=== PATIENT | female | born 1945 | race African-American/Black ===

== ENCOUNTER 2016-06-15 09:02 | Emergency (ER) | payer OTHER, MEDICAID ==
[2016-06-15 09:06] VITALS: BMI 40.9
--- NOTE | 2016-06-15 09:24 | DR.GENAD ---
HPI - PCP Primary Care Physician: LAVONNE PAYNE - HPI Comment HPI Comment: WOKE UP TODAY DIZZ, NAUSEATED, ATAXIC AND WEAK ON THE RIGHT SIDE. BP AND GLUCOSE WERE NOT LOW OR ELEVATED. GETTING WORSE. NO FEVER. NO URI OR SINUS SYMTOMS. NO PREVIOUS EPISODES. - Complaint/Symptoms Chief Complaint Doctors Comments: ATAXIA, DIZZINESS ZNE RIGHT SIDED WEAKNESS SINCE THIS AM. Chief Complaint:: Patient stated that she feels dizzy and weak. She stated that she can't stand up without being very dizzy. - Nurses notes reviewed Nurses Notes Review: Yes - Source History Provided: Patient - Mode of Arrival Mode of Arrival: Wheelchair - Timing Onset of Chief Complaint: 06/15/16 Came on: Suddenly - Duration Duration: Constant Duration: Hours PMH - PMH Past Medical History: Yes Past Medical History: Diabetes, Hypertension Past Surgical History: Yes Surgical History: Cholecystectomy, Hysterectomy - Family History History of Family Medical Conditions: Yes Family Medical History: Diabetes Mellitus, Cancer, Hypertension - Social History Does patient currently use any type of tobacco product: No Have you used tobacco products in the last 12 months: No Type of Tobacco Use: None Does any household member use tobacco: No Alcohol Use: None Do you use any recreational Drugs:: No Lives With: Family Lives Where: Home - infectious screening In the last 2 months have you had wt loss of >10#?: NO Have you had fever, night sweats or hemotysis?: No Have you traveled outside the country in the last 6 months?: No Isolation: Standard ROS - Review of Systems Constitutional: Weakness, Fatigue. negative: Chills, Fever Eyes: No Symptoms Reported. negative: Eye Pain, Blurred Vision, Discharge, Photophobia, Diplopia ENTM: No Symptoms Reported. negative: Ear Pain, Nose Discharge, Nose Congestion , Throat Pain Respiratoy: Non-Productive Cough. negative: Productive Cough, Short of Breath, Wheezing, Hemoptysis Cardiovascular: Syncope (NEAR SYNCOPE). negative: Palpitations Gastrointestinal/Abdominal: Nausea. negative: Abdominal Pain, Diarrhea, Vomiting Genitourinary: No Symptoms Reported. negative: Dysuria, Frequency, Hematuria Neurological: Headache (RIGHT SIDED HEADACHE), Weakness, Dizziness, Other ( ATAXIA) Musculoskeletal: Muscle Pain Integumentary: No Symptoms Reported Hematologic/Lymphatic: No Symptoms Reported Endocrine: No Symptoms Reported All Other Systems: Reviewed and Negative PE - Vital Signs Vitals: Temperature 97.9 F Pulse Rate 79 Respiratory Rate 20 Blood Pressure 137/70 O2 Sat by Pulse Oximetry 99 - General Limitations: No Limitations General Appearance: Alert - Head Head Exam: Normal Inspection - Eyes Eye exam: Normal Appearance - ENT ENT Exam: Normal External Ear Exam External Ear Exam: Normal External Inspection TM/Canal Exam: Bilateral Normal Nose Exam: Normal Nose Exam Mouth Exam: Normal Inspection Throat Exam: Normal Inspection - Neck Neck Exam: Normal Inspection - Chest Chest Inspection: Symmetric Chest Wall Rise - Respiratory Respiratory Exam: Normal Lung Sounds Bilat Respiratory Exam: Bilateral Clear to Auscultation - Cardiovascular Cardiovascular Exam: Regular Rate, Normal Rhythm, Normal Heart Sounds - Abdominal Exam Abdominal Exam: Normal Bowel Sounds, Soft. negative: Tenderness - Extremities Extremities Exam: Normal Inspection - Back Back Exam: Normal Inspection - Neurologic Neurological Exam: Alert, Oriented X3, CN II-XII Intact, Reflexes Normal. negative: Normal Gait (ATAXIA), Motor Sensory Deficit - Psychiatric Psychiatric Exam: Anxious - Skin Skin Exam: Normal Color MDM - Additional Information Additional Information Obtained From: Family - Differential Diagnosis Differential Diagnosis: ATAXIA, DIZZINESS. CVA, TIA, VERTIGO Course - Treatment Treatment: SEE ORDERS - Consultation Consultation Comments: DISCUSS PATIENT WITH DR. MICHELLE. HE WILL ADMIT PATIENT. - Education/Counseling Education/Counseling: Patient, Family, Education Educated On: Diagnosis, Needs for Follow Up ROR - Labs Reviewed Laboratory Results Reviewed?: Yes Result Diagrams: 06/16/16 03:25 06/16/16 03:25 Laboratory: WBC 7.5 X10^3/uL (3.6-10.0) 06/15/16 10:04 RBC 4.87 X10^6/uL (3.5-5.4) 06/15/16 10:04 Hgb 13.7 g/dL (12.0-16.0) 06/15/16 10:04 Hct 41.0 % (36.0-47.0) 06/15/16 10:04 MCV 84.3 fL (80.0-100.0) 06/15/16 10:04 MCH 28.2 pg (27.0-34.0) 06/15/16 10:04 MCHC 33.5 g/dL (33.0-35.0) 06/15/16 10:04 RDW 13.6 % (11.6-16.5) 06/15/16 10:04 Plt Count 232 X10^3/uL (150.0-450.0) 06/15/16 10:04 MPV 8.6 fL (7.4-11.0) 06/15/16 10:04 Neut % 55.1 % (42.0-75.0) 06/15/16 10:04 Lymph % 34.8 % (21.0-51.0) 06/15/16 10:04 [place] % 6.5 % (0.0-13.0) 06/15/16 10:04 Eos % 2.6 % (0.9-2.9) 06/15/16 10:04 Baso % 1.0 % (0.2-1.0) 06/15/16 10:04 Neut # 4.1 x10^3/uL (2.2-4.8) 06/15/16 10:04 Lymph # 2.6 X10^3/uL (1.3-2.9) 06/15/16 10:04 [place] # 0.5 x10^3/uL (0.3-0.8) 06/15/16 10:04 Eos # 0.2 x10^3/uL (0.0-0.2) 06/15/16 10:04 Baso # 0.1 X10^3/uL (0.0-0.1) 06/15/16 10:04 Absolute Nucleated RBC 0.1 /100WBC 06/15/16 10:04 Sodium 140 mmol/L (136-145) 06/15/16 10:04 Corrected Sodium 141 mmol/L (136-145) 06/15/16 10:04 Potassium 3.2 mmol/L (3.5-5.1) L 06/15/16 10:04 Chloride 102 mmol/L (98-107) 06/15/16 10:04 Carbon Dioxide 27.9 mmol/L (21-32) 06/15/16 10:04 BUN 15 mg/dL (7-18) 06/15/16 10:04 Creatinine 0.77 mg/dL (0.55-1.02) 06/15/16 10:04 Est GFR (MDRD) Af Amer > 60 (>60) 06/15/16 10:04 Est GFR (MDRD) Non-Af > 60 (>60) 06/15/16 10:04 Glucose 129 mg/dL (65-99) H 06/15/16 10:04 Calcium 9.0 mg/dL (8.5-10.1) 06/15/16 10:04 Corrected Calcium TNP 06/15/16 10:04 Total Bilirubin 0.60 mg/dL (0.2-1.0) 06/15/16 10:04 AST 26 Units/L (15-37) 06/15/16 10:04 ALT 33 Units/L (12-78) 06/15/16 10:04 Alkaline Phosphatase 86 Units/L (46-116) 06/15/16 10:04 Creatine Kinase 127 Units/L (26-192) 06/15/16 10:04 CK-MB (CK-2) < 1.0 ng/mL (0-4.0) 06/15/16 10:04 CK/CKMB % Calc 0.8 % (<4) 06/15/16 10:04 Troponin I < 0.02 ng/mL (0-1.5) 06/15/16 10:04 Total Protein 7.9 g/dL (6.4-8.2) 06/15/16 10:04 Albumin 3.4 g/dL (3.4-5.0) 06/15/16 10:04 Globulin 4.5 g/dL (2.5-4.5) 06/15/16 10:04 Albumin/Globulin Ratio 0.8 Ratio (1.1-2.1) L 06/15/16 10:04 - XRAY XRAY Interpreted by: Radiologist XRAY Findings: REPORT DISCUSS WITH PATIENT. - EKG Rhythm: NSR (EKG NOTED) - Diagnosis Discharge Problem: Ataxia, Dizziness, Right sided weakness Headache Qualifiers: Headache type: unspecified Headache chronicity pattern: acute headache Intractability: intractable Qualified Code(s): R51 - Headache - Discharge Plan Disposition: ADMITTED INPATIENT Condition: Stable - Follow ups/Referrals - Instructions
[2016-06-15 10:25] LABS: BASOPHILS # (AUTO) 0.1 X10^3/uL (0.0-0.1); EOSINOPHILS # (AUTO) 0.2 x10^3/uL (0.0-0.2); EOSINOPHILS % (AUTO) 2.6 % (0.9-2.9); HEMOGLOBIN 13.7 g/dL (12.0-16.0); LYMPHOCYTES # (AUTO) 2.6 X10^3/uL (1.3-2.9); LYMPHOCYTES % (AUTO) 34.8 % (21.0-51.0); MEAN CORPUSCULAR HEMOGLOBIN 28.2 pg (27.0-34.0); MEAN CORPUSCULAR HGB CONC 33.5 g/dL (33.0-35.0); MEAN CORPUSCULAR VOLUME 84.3 fL (80.0-100.0); MEAN PLATELET VOLUME 8.6 fL (7.4-11.0); MONOCYTES # (AUTO) 0.5 x10^3/uL (0.3-0.8); MONOCYTES % (AUTO) 6.5 % (0.0-13.0); NEUTROPHILS # (AUTO) 4.1 x10^3/uL (2.2-4.8); NEUTROPHILS % (AUTO) 55.1 % (42.0-75.0); PLATELET COUNT 232 X10^3/uL (150.0-450.0); RED BLOOD COUNT 4.87 X10^6/uL (3.5-5.4); RED CELL DISTRIBUTION WIDTH 13.6 % (11.6-16.5); WHITE BLOOD COUNT 7.5 X10^3/uL (3.6-10.0)
[2016-06-15 10:38] LABS: BLOOD UREA NITROGEN 15 mg/dL (7-18); CARBON DIOXIDE 27.9 mmol/L (21-32); CHLORIDE 102 mmol/L (98-107); COR NA(FOR HYPERGLY) 141 mmol/L (136-145); CREATININE 0.77 mg/dL (0.55-1.02); GLUCOSE 129 mg/dL (65-99); SODIUM 140 mmol/L (136-145); TROPONIN I < 0.02 ng/mL (0-1.5); eGFR BLACK RACES > 60 (>60); eGFR NON BLACK RACES > 60 (>60)
[2016-06-15] MEDS ORDERED: POTASSIUM CHLORIDE LIQ 20 MEQ UDC PO ONE (10:43)
[2016-06-15 10:44] LABS: ALANINE AMINOTRANSFERASE 33 Units/L (12-78); ALBUMIN 3.4 g/dL (3.4-5.0); ALKALINE PHOSPHATASE 86 Units/L (46-116); ASPARTATE AMINO TRANSFERASE 26 Units/L (15-37); CKMB % 0.8 % (<4); CREATINE KINASE 127 Units/L (26-192); CREATINE KINASE MB < 1.0 ng/mL (0-4.0); TOTAL PROTEIN 7.9 g/dL (6.4-8.2)
[2016-06-15] MEDS ORDERED: POTASSIUM CHLORIDE LIQ 20 MEQ UDC ONE (10:50)
--- NOTE | 2016-06-15 11:30 | CT ---
HISTORY: Headache, dizziness Study: CT brain without contrast Comparison: None Technique: Multiple axial images of the brain were obtained from the skull base to the vertex without administr ation of IV contrast. Coronal and sagittal reformats were performed. Dose reduction procedures were used with MA/kv adjusted for body size. Findings: No acute intraparenchymal hemorrhage or mass can be identified. No extra-axial fluid collections ar e seen. No alteration in the attenuation of the brain parenchyma can be identified to suggest acute or subacute ischemic change. The ventricular system is symmetric and nondilated. The extracranial structures are grossly unremarkable. IMPRESSION: No significant intracranial abnormality identified Reported By:
--- NOTE | 2016-06-15 12:04 | RAD ---
HISTORY: Cough, dizziness Study: Chest one view Comparison: None Findings: The trachea is midline. The cardiac silhouette is enlarged. No congestive heart failure is noted. T he aorta is calcified.. The lungs are clear without focal infiltrate or effusion. The bony thorax is unremarkable. IMPRESSION: 1. Cardiomegaly without congestive heart failure 2. Lungs clear Reported By:
[2016-06-15 14:15] LABS: BILIRUBIN,URINE NEGATIVE (NEGATIVE); BLOOD/HEMOGLOBIN,URINE 1+ (NEGATIVE); GLUCOSE, URINE NEGATIVE (NEGATIVE); KETONES,URINE NEGATIVE (NEGATIVE); LEUKOCYTE ESTERASE ,URINE NEGATIVE (NEGATIVE); NITRITES,URINE NEGATIVE (NEGATIVE); PH,URINE 6.5 (5.0 - 8.0); PROTEIN,URINE NEGATIVE (NEGATIVE); UROBILINOGEN,URINE NORMAL (NORMAL)
[2016-06-15 14:23] LABS: APPEARANCE,URINE CLEAR (CLEAR); BACTERIA,URINE TRACE /HPF (NEGATIVE); COLOR,URINE YELLOW (YELLOW); RBC,URINE 0-2 /HPF (NEGATIVE); SQUAMOUS EPITHELIAL CELL,UR NEGATIVE /HPF (NEGATIVE)
[2016-06-15 17:01] LABS: CKMB % 0.7 % (<4); CREATINE KINASE 135 Units/L (26-192); CREATINE KINASE MB < 1.0 ng/mL (0-4.0); TROPONIN I < 0.02 ng/mL (0-1.5)
[2016-06-15] MEDS: FIORICET TAB PO PRN (20:07)
[2016-06-15] MEDS ORDERED: K-RIDER 10 MEQ/NS 100 ML 10 MEQ/100 ML BAG IV PRN (20:22)
[2016-06-15] MEDS ORDERED: K-DUR TAB 20 MEQ PO PRN (20:22)
[2016-06-15] MEDS ORDERED: K-LYTE EFFERVESCENT PO PRN (20:22)
[2016-06-15] MEDS ORDERED: POTASSIUM CHLORIDE LIQ 20 MEQ UDC PO PRN (20:22)
[2016-06-15 23:11] LABS: CREATINE KINASE 116 Units/L (26-192); CREATINE KINASE MB 1.2 ng/mL (0-4.0); TROPONIN I < 0.02 ng/mL (0-1.5)
[2016-06-16 05:24] LABS: BASOPHILS # (AUTO) 0.1 X10^3/uL (0.0-0.1); BASOPHILS % (AUTO) 0.7 % (0.2-1.0); EOSINOPHILS # (AUTO) 0.3 x10^3/uL (0.0-0.2); EOSINOPHILS % (AUTO) 4.1 % (0.9-2.9); HEMATOCRIT 40.9 % (36.0-47.0); HEMOGLOBIN 13.6 g/dL (12.0-16.0); LYMPHOCYTES # (AUTO) 3.8 X10^3/uL (1.3-2.9); LYMPHOCYTES % (AUTO) 45.5 % (21.0-51.0); MEAN CORPUSCULAR HEMOGLOBIN 28.2 pg (27.0-34.0); MEAN CORPUSCULAR HGB CONC 33.3 g/dL (33.0-35.0); MEAN CORPUSCULAR VOLUME 84.7 fL (80.0-100.0); MEAN PLATELET VOLUME 9.2 fL (7.4-11.0); MONOCYTES # (AUTO) 0.6 x10^3/uL (0.3-0.8); MONOCYTES % (AUTO) 7.7 % (0.0-13.0); NEUTROPHILS # (AUTO) 3.5 x10^3/uL (2.2-4.8); PLATELET COUNT 235 X10^3/uL (150.0-450.0); RED BLOOD COUNT 4.83 X10^6/uL (3.5-5.4); RED CELL DISTRIBUTION WIDTH 13.8 % (11.6-16.5); WHITE BLOOD COUNT 8.3 X10^3/uL (3.6-10.0)
[2016-06-16 05:42] LABS: ALANINE AMINOTRANSFERASE 36 Units/L (12-78); ALBUMIN 3.1 g/dL (3.4-5.0); ALKALINE PHOSPHATASE 80 Units/L (46-116); ASPARTATE AMINO TRANSFERASE 25 Units/L (15-37); BLOOD UREA NITROGEN 11 mg/dL (7-18); CALCIUM 8.7 mg/dL (8.5-10.1); CARBON DIOXIDE 26.2 mmol/L (21-32); CHLORIDE 106 mmol/L (98-107); COR CA(FOR HYPOALB) 9.4 mg/dL (8.5-10.1); CREATININE 0.71 mg/dL (0.55-1.02); GLUCOSE 109 mg/dL (65-99); SODIUM 143 mmol/L (136-145); TOTAL PROTEIN 7.4 g/dL (6.4-8.2); eGFR BLACK RACES > 60 (>60); eGFR NON BLACK RACES > 60 (>60)
[2016-06-16] MEDS ORDERED: GLUCOPHAGE ONE (08:16)
[2016-06-16] MEDS: NORVASC TAB 10 MG PO SCH (08:45)
[2016-06-16] MEDS: GLUCOPHAGE PO SCH (08:45)
[2016-06-16] MEDS: HYDROCHLOROTHIAZIDE 25 MG TAB PO SCH (08:45)
[2016-06-16] MEDS: FIORICET TAB PO PRN (08:46)
--- NOTE | 2016-06-16 11:26 | MRI ---
HISTORY: Ataxia, dizziness, left-sided weakness Study: MRI Brain with and without contrast Comparison: CT head 06/15/2016 Technique: Multiplanar multi-sequence MRI of the brain was obtained utilizing standard departmental protocol. Sagittal and axial T1 weighted images were obtained. Axial T2 and flair weighted images were performed as well. Axial diffusion weighted and ADC trace mapping was performed. Findings: The brain parenchyma demonstrates no abnormal signal characteristics to suggest intraparenchymal mas s or hemorrhage. Diffusion weighted imaging does not demonstrate abnormal signal characteristics to suggest acute ischemic change.No extra-axial fluid collections are observed. The ventricular system appears symmetric and nondilated. The cerebellopontine angles are normal in appearance without brai nstem mass or evidence for acoustic neuroma. There is no abnormal enhancement. The flow voids on T2 weighted imaging appear unremarkable. The midline structures appear unremarkab le. The soft tissues are unremarkable. The visualized paranasal sinuses and mastoid air cells are c lear. IMPRESSION: 1. Normal MRI of the brain with and without contrast. Reported By:
--- NOTE | 2016-06-16 14:52 | DR.H&P ---
H&P - History & Physical for Day of: H&P Date: 06/15/16 - Chief Complaint Chief Complaint: RIGHT-SIDED WEAKNESS, DIZZINESS - Allergies Allergies/Adverse Reactions: Allergies Allergy/AdvReac Type Severity Reaction Status Date / Time No Known Drug Allergy Allergy Verified 06/22/13 03:41 - History of Present Illness History of Present Illness: THIS IS A 70 YEAR OLD FEMALE, WHO IS A PATIENT OF DR. UZMA PAYNE. SHE PRESENT TO THE EMERGENCY ROOM WITH COMPLAINTS OF DIZZINESS, NAUSEA, AND WEAKNESS ON RIGHT SIDE. SHE REPORTS ONSET OF SYMPTOMS WAS EARLIER THIS MORNING. SHE DENIES PREVIOUS EPISODES. SHE ALSO DENIES FEVER , COUGH, OR SINUS SYMPTOMS. SHE IS NOTED WITH ATAXIA. PATIENT ALSO REPORTS A SEVERE HEADACHE. LABS AND CT OBTAINED IN ER. CBC WNL. CMP WNL EXCEPT: POTASSIUM 3.2, GLUCOSE 129. CARDIAC ENZYMES WNL. EKG: SINUS RHYTHM, RATE 66. CT BRAIN REPORTS NO SIGNIFICANT INTRACRANIAL ABNORMALITY. CHEST XRAY NORMAL. WE WILL ADMIT PATIENT TO HOSPITAL FOR FURTHER TREATMENT AND EVALUATION OF RIGHT- SIDED WEAKNESS AND DIZZINESS. WE WILL FOLLOW UP IN AM WITH LABS AND MRI OF BRAIN. - Past Medical History Past Medical History: Arthritis, Diabetes, Hypertension Additional Medical History: Back Pain - Past Surgical History Surgical History: Cholecystectomy, Hysterectomy - Family History Family Medical History: Diabetes Mellitus, Cancer, Hypertension Family History Comment: Mother- CHF - Social History Does patient currently use any type of tobacco product: No Have you used tobacco products in the last 12 months: No Type of Tobacco Use: None Does any household member use tobacco: No Alcohol Use: None Drug Use: None - Medications Home Medications: Hydrochlorothiazide [HYDROCHLOROTHIAZIDE 25 MG TAB *] 1 tab PO DAILY 06/15/16 [ History Confirmed 06/15/16] RX: Amlodipine Besylate [NORVASC 10 MG *] 1 tab PO DAILY 06/15/16 [History Confirmed 06/15/16] RX: Metformin HCl [GLUCOPHAGE 500 MG *] 1 tab PO DAILY 06/15/16 [History Confirmed 06/15/16] - Review of Systems Constitutional: Weakness, Malaise Eyes: No Symptoms Reported. denies: Pain, Vision Change, Conjunctivae Inflammation, Eyelid Inflammation, Redness ENT: No Symptoms Reported. denies: Ear Pain, Ear Discharge, Nose Pain, Nose Discharge, Nose Congestion, Mouth Pain, Mouth Swelling, Throat Pain, Throat Swelling Respiratory: No Symptoms Reported. denies: Cough, Shortness of Breath, Hemoptysis, SOB with Excertion, Pleuritic Pain, Sputum, Wheezing Cardiovascular: Light Headedness. denies: Chest Pain, Palpitations, Orthopnea, Paroxysmal Noc. Dyspnea, Edema Gastrointestinal: No Symptoms Reported. denies: Nausea, Vomiting, Abdominal Pain, Diarrhea, Constipation, Melena, Hematochezia Genitourinary: No Symptoms Reported. denies: Dysuria, Frequency, Incontinence, Hematuria, Retention Musculoskeletal: No Symptoms Reported. denies: Shoulder Pain, Arm Pain, Back Pain, Hand Pain, Leg Pain, Foot Pain, Neck Pain Skin: No Symptoms Reported. denies: Lesions, Jaundice, Bruising, Wound, Ecchymosis Neurological: Weakness (Right-sided), Other (Ataxia, Dizziness) - Physical Exam Vital Signs: Temperature 97.6 F Pulse Rate [Right Brachial] 63 Respiratory Rate 20 Blood Pressure [Right Arm] 117/65 O2 Sat by Pulse Oximetry 20 Oriented: Normal, Time, Person, Place Eyes: Normal. negative: Blurred Vision, Diplopia, Discharge, Pain, Redness, Photophobia Ear: Normal. negative: Swelling, Ecchymosis, Hemotypanum, Abrasion, Laceration Nose: Normal. negative: Injected, Discharge, Blood Throat: Normal. negative: Tonsillar Hypertrophy, Red, Exudate Respiratory: Clear Throughout Cardiovascular: Normal. negative: Murmur, Edema : Normal. negative: Dysuria, Hematuria, Frequency, Discharge, Bleeding, Auscultation: Bowel Sounds: Normal. negative: Bruit Palpation: Normal. negative: Spleen Enlarged, Liver Enlarged, Mass Pulsatile Tenderness: Normal. negative: Rebound, Guarding, Rigidity Skin: Normal. negative: Diaphoresis, Wound, Bruising, Ecchymosis Musculoskeletal: Instability (Right-sided weakness) Psychiatric: Normal Mood Description: Calm, Appropriate Affect: Normal Speech Pattern: Clear, Appropriate - Assessment/Plan (1) Right sided weakness Status: Acute Plan: ADMIT PATIENT, START NEURO CHECKS Q2H, MRI OF BRAIN IN AM, MONITOR. (2) Ataxia Status: Acute Plan: ABOVE. (3) Dizziness Status: Acute Plan: ABOVE. (4) Headache Qualifiers: Headache type: unspecified Headache chronicity pattern: acute headache Intractability: intractable Qualified Code(s): R51 - Headache Status: Acute Plan: START FIORICET NEEDED, MONITOR. 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
--- NOTE | 2016-06-16 15:10 | PCM.PROG ---
Progress Note - Progress Note for Day of Date: 06/16/16 - Subjective Subjective: PATIENT REPORTS SHE CONTINUES WITH RIGHT-SIDED WEAKNESS, HEADACHE, AND DIZZINESS. PATIENT CONTINUES WITH UNSTEADY GAIT AND REQUIRES ASSISTANCE. SPEECH IS CLEAR. COGNITION IS INTACT, CLEAR, APPROPRIATE. CBC WNL. CMP WNL EXCEPT: GLUCOSE 109, ALBUMIN 3.1. CARDIAC ENZYMES WNL. EKG: SINUS RHYTHM, RATE 70. AN MRI OF BRAIN IS SCHEDULED FOR TODAY. WE WILL ALSO OBTAIN AN ECHO, CAROTID DOPPLER, AND FASTING LIPID PANEL. WE WILL CONTINUE TO MONITOR AND FOLLOW UP IN AM WITH LABS. - Past Medical Family Social History Past Med/Fam/Surg Hx: No changes since H&P Allergies: Allergies No Known Drug Allergy Allergy (Verified 06/22/13 03:41) - Review of Systems ROS: No change since H&P - Vital Signs and I&O's Vital Signs: Temperature 97.6 F Pulse Rate [Right Brachial] 63 Respiratory Rate 20 Blood Pressure [Right Arm] 117/65 O2 Sat by Pulse Oximetry 20 Intake and Output: Intake & Output 06/14/16 06/15/16 06/16/16 06/17/16 11:59 11:59 11:59 11:59 Intake Total 720 780 Balance 720 780 - Physical Exam Oriented: Normal, Time, Person, Place Eyes: Normal. negative: Blurred Vision, Diplopia, Discharge, Pain, Redness, Photophobia Ear: Normal. negative: Swelling, Ecchymosis, Hemotypanum, Abrasion, Laceration Nose: Normal. negative: Injected, Discharge, Blood Throat: Normal. negative: Tonsillar Hypertrophy, Red, Exudate Respiratory: Normal Cardiovascular: Normal. negative: Murmur, Edema : Normal. negative: Dysuria, Hematuria, Frequency, Discharge, Bleeding, Auscultation: Bowel Sounds: Normal. negative: Bruit Palpation: Normal. negative: Spleen Enlarged, Liver Enlarged, Mass Pulsatile Tenderness: Normal. negative: Rebound, Guarding, Rigidity Skin: Normal. negative: Diaphoresis, Wound, Bruising, Ecchymosis Musculoskeletal: Instability (Right-sided weakness) Psychiatric: Normal Mood Description: Calm, Appropriate Affect: Normal Speech Pattern: Clear, Appropriate - Laboratory and Diagnostics Result Diagrams: 06/16/16 03:25 06/16/16 03:25 Labs: Laboratory WBC 8.3 X10^3/uL (3.6-10.0) 03/30/17 03:25 RBC 4.83 X10^6/uL (3.5-5.4) 06/16/16 03:25 Hgb 13.6 g/dL (12.0-16.0) 06/16/16 03:25 Hct 40.9 % (36.0-47.0) 06/16/16 03:25 MCV 84.7 fL (80.0-100.0) 06/16/16 03:25 MCH 28.2 pg (27.0-34.0) 06/16/16 03:25 MCHC 33.3 g/dL (33.0-35.0) 06/16/16 03:25 RDW 13.8 % (11.6-16.5) 06/16/16 03:25 Plt Count 235 X10^3/uL (150.0-450.0) 06/16/16 03:25 MPV 9.2 fL (7.4-11.0) 06/16/16 03:25 Neut % 42.0 % (42.0-75.0) 06/16/16 03:25 Lymph % 45.5 % (21.0-51.0) 06/16/16 03:25 [place] % 7.7 % (0.0-13.0) 06/16/16 03:25 Eos % 4.1 % (0.9-2.9) H 06/16/16 03:25 Baso % 0.7 % (0.2-1.0) 06/16/16 03:25 Neut # 3.5 x10^3/uL (2.2-4.8) 06/16/16 03:25 Lymph # 3.8 X10^3/uL (1.3-2.9) H 06/16/16 03:25 [place] # 0.6 x10^3/uL (0.3-0.8) 06/16/16 03:25 Eos # 0.3 x10^3/uL (0.0-0.2) H 06/16/16 03:25 Baso # 0.1 X10^3/uL (0.0-0.1) 06/16/16 03:25 Absolute Nucleated RBC 0.0 /100WBC 06/16/16 03:25 Sodium 143 mmol/L (136-145) 06/16/16 03:25 Corrected Sodium TNP 06/16/16 03:25 Potassium 4.0 mmol/L (3.5-5.1) 06/16/16 03:25 Chloride 106 mmol/L (98-107) 06/16/16 03:25 Carbon Dioxide 26.2 mmol/L (21-32) 06/16/16 03:25 BUN 11 mg/dL (7-18) 06/16/16 03:25 Creatinine 0.71 mg/dL (0.55-1.02) 06/16/16 03:25 Est GFR (MDRD) Af Amer > 60 (>60) 06/16/16 03:25 Est GFR (MDRD) Non-Af > 60 (>60) 06/16/16 03:25 Glucose 109 mg/dL (65-99) H 06/16/16 03:25 Calcium 8.7 mg/dL (8.5-10.1) 06/16/16 03:25 Corrected Calcium 9.4 mg/dL (8.5-10.1) 06/16/16 03:25 Total Bilirubin 0.40 mg/dL (0.2-1.0) 06/16/16 03:25 AST 25 Units/L (15-37) 06/16/16 03:25 ALT 36 Units/L (12-78) 06/16/16 03:25 Alkaline Phosphatase 80 Units/L (46-116) 06/16/16 03:25 Creatine Kinase 116 Units/L (26-192) 06/15/16 22:35 CK-MB (CK-2) 1.2 ng/mL (0-4.0) 06/15/16 22:35 CK/CKMB % Calc 1.0 % (<4) 06/15/16 22:35 Troponin I < 0.02 ng/mL (0-1.5) 06/15/16 22:35 Total Protein 7.4 g/dL (6.4-8.2) 06/16/16 03:25 Albumin 3.1 g/dL (3.4-5.0) L 06/16/16 03:25 Globulin 4.3 g/dL (2.5-4.5) 06/16/16 03:25 Albumin/Globulin Ratio 0.7 Ratio (1.1-2.1) L 06/16/16 03:25 Specimen Type Clean catch urine 06/15/16 14:00 Urine Color Yellow (YELLOW) 06/15/16 14:00 Urine Appearance Clear (CLEAR) 06/15/16 14:00 Urine pH 6.5 (5.0 - 8.0) 06/15/16 14:00 Ur Specific [place] 1.010 (1.000-1.030) 06/15/16 14:00 Urine Protein Negative (NEGATIVE) 06/15/16 14:00 Urine Glucose (UA) Negative (NEGATIVE) 06/15/16 14:00 Urine Ketones Negative (NEGATIVE) 06/15/16 14:00 Urine Occult Blood 1+ (NEGATIVE) 06/15/16 14:00 Urine Nitrite Negative (NEGATIVE) 06/15/16 14:00 Urine Bilirubin Negative (NEGATIVE) 06/15/16 14:00 Urine Urobilinogen Normal (NORMAL) 06/15/16 14:00 Ur Leukocyte Esterase Negative (NEGATIVE) 06/15/16 14:00 Urine RBC 0-2 /HPF (NEGATIVE) 06/15/16 14:00 Urine WBC 0-2 /HPF (NEGATIVE) 06/15/16 14:00 Ur Squamous Epith Cells Negative /HPF (NEGATIVE) 06/15/16 14:00 Urine Bacteria Trace /HPF (NEGATIVE) 06/15/16 14:00 Ur Culture Indicated? No/not indicated 06/15/16 14:00 - Plan (1) Right sided weakness Status: Acute Plan: OBTAIN ECHO, CAROTID DOPPLER, AND FLP IN AM, CONTINUE NEURO CHECKS Q2H, MRI OF BRAIN TODAY, MONITOR. (2) Ataxia Status: Acute Plan: ABOVE. (3) Dizziness Status: Acute Plan: ABOVE. (4) Headache Status: Acute Qualifiers: Headache type: unspecified Headache chronicity pattern: acute headache Intractability: intractable Qualified Code(s): R51 - Headache Plan: CONTINUE FIORICET NEEDED, MONITOR. 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
--- NOTE | 2016-06-16 15:46 | VAS ---
HISTORY: Ataxia, right-sided weakness Study: Bilateral Carotid Ultrasound Comparison: None Technique: Multiple coleman scale and color flow Doppler images of the right and left carotid arterial system were obtained. The vertebral arterial system was evaluated as well. Findings: Normal color flow Doppler is seen throughout the right and left carotid arterial system. There is n o significant plaque present at the bilateral carotid bifurcations. Peak systolic velocity in the ri ght ICA is 33.4 cm/sec. Peak systolic velocity in the left ICA is 33.1 cm/sec. The right ICA/CCA rat io is 0.59. The left ICA/CCA ratio is 0.52. The right and left vertebral arteries demonstrate antegr emily flow. IMPRESSION: 1. No hemodynamically significant stenosis. Reported By:
[2016-06-16] MEDS ORDERED: SNACK - Diabetic Appropriate PO SCH (20:00)
[2016-06-17 06:17] LABS: CHOL/HDL RATIO 3.2 (0.0-5.0)
[2016-06-17] MEDS ORDERED: GLUCOPHAGE ONE (09:04)
[2016-06-17] MEDS: GLUCOPHAGE PO SCH (10:28)
[2016-06-17] MEDS: HYDROCHLOROTHIAZIDE 25 MG TAB PO SCH (10:28)
[2016-06-17] MEDS: NORVASC TAB 10 MG PO SCH (10:28)
[2016-06-17 11:57] VITALS: BP 125/79
== END 2016-06-17 12:00 | disposition home or self-care (01) ==
LOC: ER 09:15 → MED/SURG 14:45
PROVIDERS: ADMIT Internal Medicine; ATTEND Internal Medicine
DX: R27.0 Ataxia, unspecified (principal); R42 Dizziness and giddiness; R53.1 Weakness; R51 Headache; I51.7 Cardiomegaly; M13.89 Other specified arthritis, multiple sites; E11.65 Type 2 diabetes mellitus with hyperglycemia; I10 Essential (primary) hypertension
CPT/HCPCS: 36415; 70450; 70553; 71010; 80053; 80061; 81001; 82550; 82553; 84484; 85025; 93005; 93010; 93306; 93880; 94760; 96365; 99284; A4216; A4222; G0378

== ENCOUNTER 2017-02-17 08:24 | Emergency (ER) | payer OTHER, MEDICAID ==
[2017-02-17 08:57] VITALS: BMI 39.1
--- NOTE | 2017-02-17 09:01 | DR.GENAD ---
HPI - PCP Primary Care Physician: KERRY - Complaint/Symptoms Chief Complaint Doctors Comments: Patient presents with complaint of dizziness, lightheaded. She has a history of vertigo, has been out of her meclizine. She has also been treated for a sinus infection. She states that she has a headache right side of head for two days. He has no history of cardiopulmonary disease. Chief Complaint:: LIGHTHEADED AND FELT LIKE WAS GONNA PASS OUT. FELT THIS WAY THIS AM AND HAS PAIN TO RIGHT SIDEOF HEAD. Self Treatment fo Chief Complaint: HAS BEEN OUT OF MED ANTIVERT FOR A WHILE - Source History Provided: Patient - Mode of Arrival Mode of Arrival: Ambulatory - Timing Onset of Chief Complaint: 02/17/17 PMH - PMH Past Medical History: Yes Past Medical History: Arthritis, Diabetes, Dyslipidemia, GERD, Hypertension Past Surgical History: Yes Surgical History: Cholecystectomy, Hysterectomy - Family History History of Family Medical Conditions: Yes Family Medical History: Diabetes Mellitus, Cancer, Hypertension - Social History Type of Tobacco Use: None Alcohol Use: None Do you use any recreational Drugs:: No Lives With: Alone, Family Lives Where: Home - infectious screening In the last 2 months have you had wt loss of >10#?: NO Have you had fever, night sweats or hemotysis?: No Have you traveled outside the country in the last 6 months?: No Isolation: Standard ROS - Review of Systems Eyes: No Symptoms Reported ENTM: No Symptoms Reported Respiratoy: No Symptoms Reported Cardiovascular: No Symptoms Reported Gastrointestinal/Abdominal: No Symptoms Reported Genitourinary: No Symptoms Reported Neurological: No Symptoms Reported Musculoskeletal: No Symptoms Reported Integumentary: No Symptoms Reported Hematologic/Lymphatic: No Symptoms Reported Endocrine: No Symptoms Reported Psychiatric: No Symptoms Reported All Other Systems: Reviewed and Negative PE - Vital Signs Vitals: Temperature 97.9 F Pulse Rate 71 Respiratory Rate 18 Blood Pressure [Right Arm] 125/79 Blood Pressure 141/85 O2 Sat by Pulse Oximetry 96 - General Limitations: No Limitations General Appearance: Alert, In No Apparent Distress - Head Head Exam: Normal Inspection, Atraumatic - Eyes Eye exam: Normal Appearance, PERRL, EOMI - ENT ENT Exam: Normal Exam External Ear Exam: Normal External Inspection TM/Canal Exam: Bilateral Normal Nose Exam: Normal Nose Exam, Sinus Tenderness Mouth Exam: Normal Inspection Throat Exam: Normal Inspection - Neck Neck Exam: Normal Inspection - Chest Chest Inspection: Normal Inspection - Respiratory Respiratory Exam: Normal Lung Sounds Bilat Respiratory Exam: Bilateral Clear to Auscultation - Cardiovascular Cardiovascular Exam: Regular Rate, Normal Rhythm - Abdominal Exam Abdominal Exam: Normal Inspection, Normal Bowel Sounds Abdominal Tenderness: negative: RUQ, RLQ, LUQ, LLQ, Epigastrium, Suprapubic, Diffuse, Mild, Moderate, Severe, Other - Extremities Extremities Exam: Normal Inspection, Full ROM - Back Back Exam: Normal Inspection - Neurologic Neurological Exam: Alert, Oriented X3, CN II-XII Intact - Psychiatric Psychiatric Exam: Normal Affect - Skin Skin Exam: Warm, Dry, Intact Course - Reevaluation 1st: Improved ROR - Labs Reviewed Result Diagrams: 02/17/17 09:35 02/17/17 09:35 Laboratory: WBC 11.2 X10^3/uL (3.6-10.0) H 02/17/17 09:35 RBC 4.95 X10^6/uL (3.5-5.4) 02/17/17 09:35 Hgb 14.3 g/dL (12.0-16.0) 02/17/17 09:35 Hct 42.1 % (36.0-47.0) 02/17/17 09:35 MCV 85.0 fL (80.0-100.0) 02/17/17 09:35 MCH 28.8 pg (27.0-34.0) 02/17/17 09:35 MCHC 33.9 g/dL (33.0-35.0) 02/17/17 09:35 RDW 13.7 % (11.6-16.5) 02/17/17 09:35 Plt Count 238 X10^3/uL (150.0-450.0) 02/17/17 09:35 MPV 8.2 fL (7.4-11.0) 02/17/17 09:35 Neut % 64.9 % (42.0-75.0) 02/17/17 09:35 Lymph % 27.2 % (21.0-51.0) 02/17/17 09:35 [place] % 5.5 % (0.0-13.0) 02/17/17 09:35 Eos % 1.4 % (0.9-2.9) 02/17/17 09:35 Baso % 1.0 % (0.2-1.0) 02/17/17 09:35 Neut # 7.3 x10^3/uL (2.2-4.8) H 02/17/17 09:35 Lymph # 3.1 X10^3/uL (1.3-2.9) H 02/17/17 09:35 [place] # 0.6 x10^3/uL (0.3-0.8) 02/17/17 09:35 Eos # 0.2 x10^3/uL (0.0-0.2) 02/17/17 09:35 Baso # 0.1 X10^3/uL (0.0-0.1) 02/17/17 09:35 Absolute Nucleated RBC 0.1 /100WBC 02/17/17 09:35 Sodium 137 mmol/L (136-145) 02/17/17 09:35 Corrected Sodium TNP 02/17/17 09:35 Potassium 4.2 mmol/L (3.5-5.1) 02/17/17 09:35 Chloride 101 mmol/L (98-107) 02/17/17 09:35 Carbon Dioxide 27.7 mmol/L (21-32) 02/17/17 09:35 BUN 15 mg/dL (7-18) 02/17/17 09:35 Creatinine 0.74 mg/dL (0.55-1.02) 02/17/17 09:35 Est GFR (MDRD) Af Amer > 60 (>60) 02/17/17 09:35 Est GFR (MDRD) Non-Af > 60 (>60) 02/17/17 09:35 Glucose 108 mg/dL (65-99) H 02/17/17 09:35 Calcium 9.2 mg/dL (8.5-10.1) 02/17/17 09:35 Corrected Calcium TNP 02/17/17 09:35 Total Bilirubin 0.30 mg/dL (0.2-1.0) 02/17/17 09:35 AST 23 Units/L (15-37) 02/17/17 09:35 ALT 26 Units/L (12-78) 02/17/17 09:35 Alkaline Phosphatase 96 Units/L (46-116) 02/17/17 09:35 Creatine Kinase 69 Units/L (26-192) 02/17/17 09:35 CK-MB (CK-2) < 1.0 ng/mL (0-4.0) 02/17/17 09:35 CK/CKMB % Calc 1.5 % (<4) 02/17/17 09:35 Troponin I < 0.02 ng/mL (0-1.5) 02/17/17 09:35 C-Reactive Protein 17.20 mg/L (0-3.0) H 02/17/17 09:35 Total Protein 8.2 g/dL (6.4-8.2) 02/17/17 09:35 Albumin 3.5 g/dL (3.4-5.0) 02/17/17 09:35 Globulin 4.7 g/dL (2.5-4.5) H 02/17/17 09:35 Albumin/Globulin Ratio 0.7 Ratio (1.1-2.1) L 02/17/17 09:35 Specimen Type Clean catch urine 02/17/17 09:45 Urine Color Yellow (YELLOW) 02/17/17 09:45 Urine Appearance Clear (CLEAR) 02/17/17 09:45 Urine pH 7.0 (5.0 - 8.0) 02/17/17 09:45 Ur Specific [place] 1.015 (1.000-1.030) 02/17/17 09:45 Urine Protein Negative (NEGATIVE) 02/17/17 09:45 Urine Glucose (UA) Negative (NEGATIVE) 02/17/17 09:45 Urine Ketones Negative (NEGATIVE) 02/17/17 09:45 Urine Occult Blood Negative (NEGATIVE) 02/17/17 09:45 Urine Nitrite Negative (NEGATIVE) 02/17/17 09:45 Urine Bilirubin Negative (NEGATIVE) 02/17/17 09:45 Urine Urobilinogen Normal (NORMAL) 02/17/17 09:45 Ur Leukocyte Esterase Negative (NEGATIVE) 02/17/17 09:45 Urine RBC None seen /HPF (NEGATIVE) 02/17/17 09:45 Urine WBC Rare /HPF (NEGATIVE) 02/17/17 09:45 Ur Squamous Epith Cells Rare /HPF (NEGATIVE) 02/17/17 09:45 Urine Bacteria Negative /HPF (NEGATIVE) 02/17/17 09:45 Ur Culture Indicated? No/not indicated 02/17/17 09:45 - XRAY XRAY Interpreted by: Radiologist (Chest: no abnormality) - EKG Rhythm: NSR Block: None - Diagnosis Discharge Problem: Vertigo - Discharge Plan Condition: Stable - Follow ups/Referrals Follow ups/Referrals: UZMA PAYNE [Primary Care Provider] - 3 days - Instructions
[2017-02-17 09:49] LABS: BASOPHILS # (AUTO) 0.1 X10^3/uL (0.0-0.1); EOSINOPHILS # (AUTO) 0.2 x10^3/uL (0.0-0.2); EOSINOPHILS % (AUTO) 1.4 % (0.9-2.9); HEMATOCRIT 42.1 % (36.0-47.0); HEMOGLOBIN 14.3 g/dL (12.0-16.0); LYMPHOCYTES # (AUTO) 3.1 X10^3/uL (1.3-2.9); LYMPHOCYTES % (AUTO) 27.2 % (21.0-51.0); MEAN CORPUSCULAR HEMOGLOBIN 28.8 pg (27.0-34.0); MEAN CORPUSCULAR HGB CONC 33.9 g/dL (33.0-35.0); MEAN PLATELET VOLUME 8.2 fL (7.4-11.0); MONOCYTES # (AUTO) 0.6 x10^3/uL (0.3-0.8); MONOCYTES % (AUTO) 5.5 % (0.0-13.0); NEUTROPHILS # (AUTO) 7.3 x10^3/uL (2.2-4.8); NEUTROPHILS % (AUTO) 64.9 % (42.0-75.0); PLATELET COUNT 238 X10^3/uL (150.0-450.0); RED BLOOD COUNT 4.95 X10^6/uL (3.5-5.4); RED CELL DISTRIBUTION WIDTH 13.7 % (11.6-16.5); WHITE BLOOD COUNT 11.2 X10^3/uL (3.6-10.0)
[2017-02-17 09:58] LABS: BILIRUBIN,URINE NEGATIVE (NEGATIVE); BLOOD/HEMOGLOBIN,URINE NEGATIVE (NEGATIVE); GLUCOSE, URINE NEGATIVE (NEGATIVE); KETONES,URINE NEGATIVE (NEGATIVE); LEUKOCYTE ESTERASE ,URINE NEGATIVE (NEGATIVE); NITRITES,URINE NEGATIVE (NEGATIVE); PROTEIN,URINE NEGATIVE (NEGATIVE); UROBILINOGEN,URINE NORMAL (NORMAL)
[2017-02-17 10:07] LABS: ALANINE AMINOTRANSFERASE 26 Units/L (12-78); ALBUMIN 3.5 g/dL (3.4-5.0); ALKALINE PHOSPHATASE 96 Units/L (46-116); ASPARTATE AMINO TRANSFERASE 23 Units/L (15-37); BLOOD UREA NITROGEN 15 mg/dL (7-18); CALCIUM 9.2 mg/dL (8.5-10.1); CARBON DIOXIDE 27.7 mmol/L (21-32); CHLORIDE 101 mmol/L (98-107); CREATININE 0.74 mg/dL (0.55-1.02); SODIUM 137 mmol/L (136-145); TOTAL PROTEIN 8.2 g/dL (6.4-8.2); eGFR BLACK RACES > 60 (>60); eGFR NON BLACK RACES > 60 (>60)
[2017-02-17 10:08] LABS: APPEARANCE,URINE CLEAR (CLEAR); BACTERIA,URINE NEGATIVE /HPF (NEGATIVE); COLOR,URINE YELLOW (YELLOW); RBC,URINE NONE SEEN /HPF (NEGATIVE); SQUAMOUS EPITHELIAL CELL,UR RARE /HPF (NEGATIVE)
--- NOTE | 2017-02-17 10:49 | CT ---
History: Frontal headache and sinusitis Study: CT of the paranasal sinuses without contrast. Sagittal and coronal reformations were provided. Findings: The sinuses are clear without mass or coastal thickening or fluid. The ostiomeatal complexe s are patent. There is pneumatization of the middle turbinates. There is no significant septal deviat ion. No fracture or depression or bone destruction is demonstrated. Impression: Negative Reported By:
[2017-02-17 11:02] LABS: CKMB % 1.5 % (<4); CREATINE KINASE 69 Units/L (26-192); CREATINE KINASE MB < 1.0 ng/mL (0-4.0); TROPONIN I < 0.02 ng/mL (0-1.5)
[2017-02-17 11:38] VITALS: BP 117/74
== END 2017-02-17 11:36 | disposition home or self-care (01) ==
LOC: ER 09:04
DX: R42 Dizziness and giddiness (principal)
CPT/HCPCS: 36415; 70486; 80053; 81001; 82550; 82553; 84484; 85025; 86140; 93005; 93010; 99282; 99283; 99284

== ENCOUNTER 2017-03-16 23:27 | Emergency (ER) | payer OTHER, MEDICAID ==
[2017-03-16 23:35] VITALS: BP 136/86; BMI 40.0
[2017-03-17] MEDS ORDERED: PREDNISONE TAB 20 MG PO ONE ×2 (00:13→00:15)
[2017-03-17] MEDS ORDERED: VISTARIL PO ONE ×2 (00:13→00:15)
--- NOTE | 2017-03-17 00:26 | DR.GENAD ---
HPI - PCP Primary Care Physician: KERRY - HPI Comment HPI Comment: HISTORY BELOW. - Complaint/Symptoms Chief Complaint Doctors Comments: GENERALIZE RASH AND HIVES NOTED TONIGHT. DENIES CHEST PAIN OR THROAT DISCOMFORT. NO FEVER. Chief Complaint:: RAISED RASH TO UPPER ARMS ONSET TONIGHT, DENIES ANY NEW MEDS Self Treatment fo Chief Complaint: NONE - Nurses notes reviewed Nurses Notes Review: Yes - Source History Provided: Patient, Family Member - Mode of Arrival Mode of Arrival: Ambulatory - Timing Onset of Chief Complaint: 03/16/17 Came on: Suddenly - Duration Duration: Constant Duration: Hours - Severity Severity: Moderate PMH - PMH Past Medical History: Yes Past Medical History: Arthritis, Diabetes, Dyslipidemia, GERD, Hypertension Past Surgical History: Yes Surgical History: Cholecystectomy, Hysterectomy - Family History History of Family Medical Conditions: Yes Family Medical History: Diabetes Mellitus, Cancer, Hypertension - Social History Does patient currently use any type of tobacco product: No Have you used tobacco products in the last 12 months: No Type of Tobacco Use: None Does any household member use tobacco: No Alcohol Use: None Do you use any recreational Drugs:: No Lives With: Alone Lives Where: Home - infectious screening In the last 2 months have you had wt loss of >10#?: NO Have you had fever, night sweats or hemotysis?: No Have you traveled outside the country in the last 6 months?: No Isolation: Standard ROS - Review of Systems Constitutional: No Symptoms Reported Eyes: No Symptoms Reported ENTM: No Symptoms Reported Respiratoy: No Symptoms Reported Cardiovascular: No Symptoms Reported Gastrointestinal/Abdominal: No Symptoms Reported Genitourinary: No Symptoms Reported Neurological: No Symptoms Reported Musculoskeletal: No Symptoms Reported Integumentary: Rash. negative: Itching Hematologic/Lymphatic: No Symptoms Reported Endocrine: No Symptoms Reported All Other Systems: Reviewed and Negative PE - Vital Signs Vitals: Temperature 98.6 F Pulse Rate 82 Respiratory Rate 16 Blood Pressure [Right Arm] 117/74 Blood Pressure 136/86 O2 Sat by Pulse Oximetry 97 - General Limitations: No Limitations General Appearance: Alert - Head Head Exam: Normal Inspection - Eyes Eye exam: Normal Appearance - ENT ENT Exam: Normal External Ear Exam External Ear Exam: Normal External Inspection TM/Canal Exam: Bilateral Normal Nose Exam: Normal Nose Exam Mouth Exam: Normal Inspection Throat Exam: Normal Inspection - Neck Neck Exam: Trachea Midline - Chest Chest Inspection: Symmetric Chest Wall Rise - Respiratory Respiratory Exam: Normal Lung Sounds Bilat Respiratory Exam: Bilateral Clear to Auscultation - Cardiovascular Cardiovascular Exam: Regular Rate, Normal Rhythm, Normal Heart Sounds - Abdominal Exam Abdominal Exam: Normal Bowel Sounds, Soft. negative: Tenderness - Extremities Extremities Exam: Normal Inspection - Back Back Exam: Normal Inspection - Neurologic Neurological Exam: Oriented X3 - Psychiatric Psychiatric Exam: Normal Affect, Normal Mood - Skin Skin Exam: Rash (GENERALIZE MACULOPAPULAR RASH AND HIVES. ), Erythema MDM - Additional Information Additional Information Obtained From: Family - Differential Diagnosis Differential Diagnosis: ALLERGIC REACTION, SKIN RASH, STREP THROAT Course - Treatment Treatment: SEE ORDERS. - Education/Counseling Education/Counseling: Patient, Family, Education Educated On: Treatment, Diagnosis, Needs for Follow Up ROR - Labs Reviewed Laboratory Results Reviewed?: Yes Laboratory: Streptococcus Screen Positive (NEGATIVE) A 03/17/17 00:14 - Diagnosis Discharge Problem: Allergic dermatitis, Strep throat - Discharge Plan Condition: Stable Prescriptions: Amoxicillin [Amoxil 875 mg] 875 mg PO Q12H #20 tab Hydroxyzine Pamoate [Vistaril] 25 mg PO TID PRN #20 cap PRN Reason: Methylprednisolone Dosepak 4Mg [MEDROL DOSEPAK (4 mg tab x 21)] 1 meliton PO ONCE # 1 meliton - Follow ups/Referrals Follow ups/Referrals: NFD,None [Primary Care Provider] - 3 days - Instructions Instructions: Allergies, [id number], Strep Throat, [id number], Hives, Easy- to-Read, Rash, [id number] Additional Instructions: RETURN TO ED IF WORSE.
[2017-03-17] MEDS ORDERED: AMOXIL CAP 500 MG PO ONE ×2 (01:02)
== END 2017-03-17 01:12 | disposition home or self-care (01) ==
LOC: ER 23:40
DX: L25.9 Unspecified contact dermatitis, unspecified cause (principal); J02.0 Streptococcal pharyngitis
CPT/HCPCS: 87880; 99282; Q0177; J7506

== ENCOUNTER 2017-07-10 12:39 | Emergency (ER) | payer OTHER, MEDICAID ==
[2017-07-10 12:53] VITALS: BP 129/70; BMI 41.7
--- NOTE | 2017-07-10 13:23 | DR.GENAD ---
HPI - PCP Primary Care Physician: DR. UZMA SALAZAR - Complaint/Symptoms Chief Complaint Doctors Comments: Patient admits to dizziness and weakness when getting up in the morning recently She denies any recent infection. She zelalem cardiopulmonary disease. Chief Complaint:: PT STATES "I WAS ABOUT TO TAKE A SHOWER AND I GOT REAL LIGHT HEADED, DIZZY. I HAD TO CRAWL OUT AND SIT IN THE FLOOR" Self Treatment fo Chief Complaint: "THIS HAPPENED TO ME ABOUT A COUPLE DAYS AGO. IT WENT AWAY BUT THIS MORNING IT STARTED AGAIN" - Source History Provided: Patient, Family Member - Mode of Arrival Mode of Arrival: Wheelchair - Timing Onset of Chief Complaint: 07/10/17 PMH - PMH Past Medical History: Yes Past Medical History: Arthritis, Diabetes, Hypertension Past Medical History Comment: CONSTIPATION Past Surgical History: Yes Surgical History: Hysterectomy Past Surgical History Comment: POSSIBLE CHOLECYSTECTOMY? PATIENT IS UNSURE, PATIENT STATES "I KNOW THEY REMOVED SOME GALLSTONES BUT I DON'T KNOW IF THEY TOOK MY GALLBLADDER OUT" - Family History History of Family Medical Conditions: Yes Family Medical History: Diabetes Mellitus, Heart Failure, Hypertension - Social History Does patient currently use any type of tobacco product: No Have you used tobacco products in the last 12 months: No Type of Tobacco Use: None Does any household member use tobacco: No Alcohol Use: None Do you use any recreational Drugs:: No Lives With: Family Lives Where: Home - infectious screening In the last 2 months have you had wt loss of >10#?: NO Have you traveled outside the country in the last 6 months?: No Isolation: Standard ROS - Review of Systems Eyes: No Symptoms Reported ENTM: No Symptoms Reported Respiratoy: No Symptoms Reported Cardiovascular: No Symptoms Reported Gastrointestinal/Abdominal: No Symptoms Reported Genitourinary: No Symptoms Reported Neurological: No Symptoms Reported Musculoskeletal: No Symptoms Reported Integumentary: No Symptoms Reported Hematologic/Lymphatic: No Symptoms Reported Endocrine: No Symptoms Reported Psychiatric: No Symptoms Reported All Other Systems: Reviewed and Negative PE - Vital Signs Vitals: Temperature 97.5 F Pulse Rate 87 Respiratory Rate 20 Blood Pressure [Right Arm] 117/74 Blood Pressure 129/70 O2 Sat by Pulse Oximetry 97 - General Limitations: No Limitations General Appearance: Alert, In No Apparent Distress - Head Head Exam: Normal Inspection, Atraumatic - Eyes Eye exam: Normal Appearance, PERRL, EOMI - ENT ENT Exam: Normal Exam External Ear Exam: Normal External Inspection TM/Canal Exam: Bilateral Normal Nose Exam: Normal Nose Exam, Sinus Tenderness Mouth Exam: Normal Inspection Throat Exam: Normal Inspection - Neck Neck Exam: Normal Inspection - Chest Chest Inspection: Normal Inspection - Respiratory Respiratory Exam: Normal Lung Sounds Bilat Respiratory Exam: Bilateral Clear to Auscultation - Cardiovascular Cardiovascular Exam: Regular Rate, Normal Rhythm - Abdominal Exam Abdominal Exam: Normal Inspection, Normal Bowel Sounds Abdominal Tenderness: negative: RUQ, RLQ, LUQ, LLQ, Epigastrium, Suprapubic, Diffuse, Mild, Moderate, Severe, Other - Extremities Extremities Exam: Normal Inspection, Full ROM - Back Back Exam: Normal Inspection, Full ROM - Neurologic Neurological Exam: Alert, Oriented X3, CN II-XII Intact - Psychiatric Psychiatric Exam: Normal Affect - Skin Skin Exam: Warm, Dry, Intact Course - Reevaluation 1st: Improved - Education/Counseling Educated On: Treatment, Diagnosis, Prognosis ROR - Labs Reviewed Result Diagrams: 07/10/17 13:43 07/10/17 13:43 Laboratory: WBC 6.7 X10^3/uL (3.6-10.0) 07/10/17 13:43 RBC 4.92 X10^6/uL (3.5-5.4) 07/10/17 13:43 Hgb 14.3 g/dL (12.0-16.0) 07/10/17 13:43 Hct 41.9 % (36.0-47.0) 07/10/17 13:43 MCV 85.3 fL (80.0-100.0) 07/10/17 13:43 MCH 29.1 pg (27.0-34.0) 07/10/17 13:43 MCHC 34.2 g/dL (33.0-35.0) 07/10/17 13:43 RDW 13.5 % (11.6-16.5) 07/10/17 13:43 Plt Count 241 X10^3/uL (150.0-450.0) 07/10/17 13:43 MPV 8.6 fL (7.4-11.0) 07/10/17 13:43 Neut % (Auto) 51.1 % (42.0-75.0) 07/10/17 13:43 Lymph % (Auto) 37.1 % (21.0-51.0) 07/10/17 13:43 [place] % (Auto) 7.1 % (0.0-13.0) 07/10/17 13:43 Eos % (Auto) 4.0 % (0.9-2.9) H 07/10/17 13:43 Baso % (Auto) 0.7 % (0.2-1.0) 07/10/17 13:43 Neut # (Auto) 3.4 x10^3/uL (2.2-4.8) 07/10/17 13:43 Lymph # (Auto) 2.5 X10^3/uL (1.3-2.9) 07/10/17 13:43 [place] # (Auto) 0.5 x10^3/uL (0.3-0.8) 07/10/17 13:43 Eos # (Auto) 0.3 x10^3/uL (0.0-0.2) H 07/10/17 13:43 Baso # (Auto) 0.0 X10^3/uL (0.0-0.1) 07/10/17 13:43 Absolute Nucleated RBC 0.1 /100WBC 07/10/17 13:43 Sodium 137 mmol/L (136-145) 07/10/17 13:43 Corrected Sodium 138 mmol/L (136-145) 07/10/17 13:43 Potassium 3.8 mmol/L (3.5-5.1) 07/10/17 13:43 Chloride 101 mmol/L (98-107) 07/10/17 13:43 Carbon Dioxide 29.5 mmol/L (21-32) 07/10/17 13:43 BUN 10 mg/dL (7-18) 07/10/17 13:43 Creatinine 0.77 mg/dL (0.55-1.02) 07/10/17 13:43 Est GFR (MDRD) Af Amer > 60 (>60) 07/10/17 13:43 Est GFR (MDRD) Non-Af > 60 (>60) 07/10/17 13:43 Glucose 132 mg/dL (65-99) H 07/10/17 13:43 Calcium 9.1 mg/dL (8.5-10.1) 07/10/17 13:43 Corrected Calcium TNP 07/10/17 13:43 Total Bilirubin 0.40 mg/dL (0.2-1.0) 07/10/17 13:43 AST 17 Units/L (15-37) 07/10/17 13:43 ALT 25 Units/L (12-78) 07/10/17 13:43 Alkaline Phosphatase 84 Units/L (46-116) 07/10/17 13:43 Creatine Kinase 111 Units/L (26-192) 07/10/17 13:43 CK-MB (CK-2) < 1.0 ng/mL (0-4.0) 07/10/17 13:43 CK/CKMB % Calc 0.9 % (<4) 07/10/17 13:43 Troponin I < 0.02 ng/mL (0-1.5) 07/10/17 13:43 C-Reactive Protein 13.40 mg/L (0-3.0) H 07/10/17 13:43 Total Protein 7.8 g/dL (6.4-8.2) 07/10/17 13:43 Albumin 3.7 g/dL (3.4-5.0) 07/10/17 13:43 Globulin 4.1 g/dL (2.5-4.5) 07/10/17 13:43 Albumin/Globulin Ratio 0.9 Ratio (1.1-2.1) L 07/10/17 13:43 Specimen Type Clean catch urine 07/10/17 16:28 Urine Color Pale yellow (YELLOW) 07/10/17 16:28 Urine Appearance Clear (CLEAR) 07/10/17 16:28 Urine pH 7.0 (5.0 - 8.0) 07/10/17 16:28 Ur Specific [place] 1.010 (1.000-1.030) 07/10/17 16:28 Urine Protein Negative (NEGATIVE) 07/10/17 16:28 Urine Glucose (UA) Negative (NEGATIVE) 07/10/17 16:28 Urine Ketones Negative (NEGATIVE) 07/10/17 16:28 Urine Occult Blood Negative (NEGATIVE) 07/10/17 16:28 Urine Nitrite Negative (NEGATIVE) 07/10/17 16:28 Urine Bilirubin Negative (NEGATIVE) 07/10/17 16:28 Urine Urobilinogen Normal (NORMAL) 07/10/17 16:28 Ur Leukocyte Esterase Negative (NEGATIVE) 07/10/17 16:28 - XRAY XRAY Interpreted by: Radiologist (CT Chest: no acute cardiopulmonary abnormality , Mild COPD, Small sliding hiatal hernia and hepatic steatosis.) - Diagnosis Discharge Problem: COPD, mild, Sliding hiatal hernia, Orthostatic dizziness - Discharge Plan Condition: Stable - Follow ups/Referrals Follow ups/Referrals: UZMA PAYNE [Primary Care Provider] - 3 days - Instructions
[2017-07-10 13:51] LABS: BASOPHILS % (AUTO) 0.7 % (0.2-1.0); EOSINOPHILS # (AUTO) 0.3 x10^3/uL (0.0-0.2); HEMATOCRIT 41.9 % (36.0-47.0); HEMOGLOBIN 14.3 g/dL (12.0-16.0); LYMPHOCYTES # (AUTO) 2.5 X10^3/uL (1.3-2.9); LYMPHOCYTES % (AUTO) 37.1 % (21.0-51.0); MEAN CORPUSCULAR HEMOGLOBIN 29.1 pg (27.0-34.0); MEAN CORPUSCULAR HGB CONC 34.2 g/dL (33.0-35.0); MEAN CORPUSCULAR VOLUME 85.3 fL (80.0-100.0); MEAN PLATELET VOLUME 8.6 fL (7.4-11.0); MONOCYTES # (AUTO) 0.5 x10^3/uL (0.3-0.8); MONOCYTES % (AUTO) 7.1 % (0.0-13.0); NEUTROPHILS # (AUTO) 3.4 x10^3/uL (2.2-4.8); NEUTROPHILS % (AUTO) 51.1 % (42.0-75.0); PLATELET COUNT 241 X10^3/uL (150.0-450.0); RED BLOOD COUNT 4.92 X10^6/uL (3.5-5.4); RED CELL DISTRIBUTION WIDTH 13.5 % (11.6-16.5); WHITE BLOOD COUNT 6.7 X10^3/uL (3.6-10.0)
[2017-07-10 14:11] LABS: ALANINE AMINOTRANSFERASE 25 Units/L (12-78); ALBUMIN 3.7 g/dL (3.4-5.0); ALKALINE PHOSPHATASE 84 Units/L (46-116); ASPARTATE AMINO TRANSFERASE 17 Units/L (15-37); BLOOD UREA NITROGEN 10 mg/dL (7-18); CALCIUM 9.1 mg/dL (8.5-10.1); CARBON DIOXIDE 29.5 mmol/L (21-32); CHLORIDE 101 mmol/L (98-107); COR NA(FOR HYPERGLY) 138 mmol/L (136-145); CREATININE 0.77 mg/dL (0.55-1.02); SODIUM 137 mmol/L (136-145); TOTAL PROTEIN 7.8 g/dL (6.4-8.2); eGFR BLACK RACES > 60 (>60); eGFR NON BLACK RACES > 60 (>60)
--- NOTE | 2017-07-10 14:17 | CT ---
STUDY: CT PARANASAL SINUSES WITHOUT CONTRAST HISTORY: Weakness and dizziness. Lightheaded. Comparison: None. Technique: Multiple axial images of the paranasal sinuses were obtained without the administration of IV contrast. Coronal and sagittal reformats were performed and reviewed. Automated exposure control (AEC) was utilized to adjust the MA and/or kV. Findings: Axial images: There is mild mucosal thickening in multiple ethmoid air cells. The remaining paranasal sinuses are predominantly clear. No air-fluid levels are identified. There is no evidence of osteone ogenesis. The retro antral fat is clear. The nasal cavity is within normal limits. There is minimal n peter septal deviation to the right. The nasal bone is intact. Reformatted images: The ethmoid roofs are symmetric. The lamina papyracea is intact bilaterally. Ther e is no evidence of orbital blowout. The ostiomeatal units are predominantly clear. No signficant odo ntogenic abnormality is identified. Mastoid air cells and middle ear cavities are predominately clear. IMPRESSION: 1. Mild ethmoid mucosal thickening. No evidence of acute sinusitis at this time. 2. Normal appearing mastoid air cells and middle ear cavities bilaterally. Reported By:
[2017-07-10 14:22] LABS: CKMB % 0.9 % (<4); CREATINE KINASE 111 Units/L (26-192); CREATINE KINASE MB < 1.0 ng/mL (0-4.0); TROPONIN I < 0.02 ng/mL (0-1.5)
[2017-07-10] MEDS ORDERED: DILAUDID INJ IVP STA (15:17)
--- NOTE | 2017-07-10 16:35 | CT ---
CT chest with contrast Indication: Weakness, vertigo Comparison: None available Technique: Multiple axial images of the chest were obtained from the thoracic inlet to the upper abdo men after the administration of IV contrast. Findings: The thyroid gland is unremarkable. Heart size is normal without pericardial effusion. Thoracic aorta is normal in caliber with scattered calcified atherosclerotic disease. No significant coronary artery atherosclerotic disease identified. There is no enlarged mediastinal or hilar lymphadenopathy. Revie w of lung windows demonstrates mild centrilobular and paraseptal emphysema; however, no focal airspac e opacity, nodule or mass. No pleural effusion or pneumothorax. Imaging of the upper abdomen demonstr ates hepatic steatosis and previous cholecystectomy. The there is a small sliding hiatal hernia as we ll. The review of bone windows demonstrates no acute osseous abnormality. Impression: 1.No acute cardiopulmonary abnormality. 2. Mild COPD. 3. Small sliding hiatal hernia and hepatic steatosis. Reported By:
[2017-07-10 16:40] LABS: BILIRUBIN,URINE NEGATIVE (NEGATIVE); BLOOD/HEMOGLOBIN,URINE NEGATIVE (NEGATIVE); GLUCOSE, URINE NEGATIVE (NEGATIVE); KETONES,URINE NEGATIVE (NEGATIVE); LEUKOCYTE ESTERASE ,URINE NEGATIVE (NEGATIVE); NITRITES,URINE NEGATIVE (NEGATIVE); PROTEIN,URINE NEGATIVE (NEGATIVE); UROBILINOGEN,URINE NORMAL (NORMAL)
[2017-07-10 16:49] LABS: APPEARANCE,URINE CLEAR (CLEAR); COLOR,URINE PALE YELLOW (YELLOW)
== END 2017-07-10 17:14 | disposition home or self-care (01) ==
LOC: ER 13:00
DX: J44.9 Chronic obstructive pulmonary disease, unspecified (principal); K44.9 Diaphragmatic hernia without obstruction or gangrene; R42 Dizziness and giddiness; R94.31 Abnormal electrocardiogram [ECG] [EKG]
CPT/HCPCS: 36415; 70486; 71260; 80053; 81003; 82550; 82553; 84484; 85025; 86140; 93005; 93010; 96365; 99283; A4222